=== PATIENT | male | born 1955 ===

== ENCOUNTER 2018-10-31 21:38 | Emergency (ER) | payer SELFPAY ==
[2018-10-31 21:46] VITALS: RESP 18
--- NOTE | 2018-11-01 01:27 | ED PDOC ---
Lower Extremity Pain/Injury Time Seen by Provider: 11/01/18 00:41 Chief Complaint (Nursing): Upper Extremity Problem/Injury Chief Complaint (Provider): Lower Extremity Problem/Injury History Per: Patient History/Exam Limitations: no limitations Onset/Duration Of Symptoms: Days (x1) Additional Complaint(s): 62 y/o male with history of hypertension and diabetes presents to ER for evaluation of ankle pain since yesterday 9am. Patient reports he was at work and fell off a ladder. He states he fell onto his feet and had been having pain since then but he was able to continue working. Patient reports swelling to right ankle and states he took Ibuprofen and applied nguyen wrap. He states he was concerned he might have fracture, which prompted ED visit. PMD: non provided Past Medical History Reviewed: Historical Data, Nursing Documentation, Vital Signs Vital Signs: Last Vital Signs Temp 97.7 F 10/31/18 21:44 Pulse 98 H 10/31/18 21:44 Resp 18 10/31/18 21:44 BP 179/81 H 10/31/18 21:44 Pulse Ox 97 10/31/18 21:44 - Medical History PMH: Diabetes, HTN - Surgical History Surgical History: No Surg Hx - Family History Family History: States: Unknown Family Hx - Social History Current smoker - smoking cessation education provided: No Alcohol: None Drugs: Denies - Allergies Allergies/Adverse Reactions: Allergies Allergy/AdvReac Type Severity Reaction Status Date / Time No Known Allergies Allergy Verified 10/31/18 21:44 Review of Systems ROS Statement: Except As Marked, All Systems Reviewed And Found Negative Musculoskeletal: Positive for: Foot Pain (Right ankle pain) Physical Exam - Reviewed Nursing Documentation Reviewed: Yes Vital Signs Reviewed: Yes - Physical Exam Appears: Positive for: Non-toxic, No Acute Distress Head Exam: Positive for: ATRAUMATIC, NORMOCEPHALIC Skin: Positive for: Normal Color, Warm, Dry Extremity: Positive for: Normal ROM (of left ankle), Swelling (mild to right bimalleolar ankle), Other (Full sensatoin and movement of toes) Neurologic/Psych: Positive for: Alert, Oriented (x3) - ECG O2 Sat by Pulse Oximetry: 97 (RA) Pulse Ox Interpretation: Normal Medical Decision Making Medical Decision Making: Time: 47 Initial impression: 62 years old male with ankle injury Initial plan: --Ankle x-ray --Patient declines any pain medicine 0204 Bilateral ankle x-ray shows no fracture or dislocation. Patient is stable for discharge. Diagnosis is ankle sprain. Scribe Attestation: Documented by Simran Valle, acting as a scribe for Claus Suarez MD. Provider Scribe Attestation: All medical record entries made by the Scribe were at my direction and personally dictated by me. I have reviewed the chart and agree that the record accurately reflects my personal performance of the history, physical exam, medical decision making, and the department course for this patient. I have also personally directed, reviewed, and agree with the discharge instructions and disposition. Disposition - Clinical Impression Clinical Impression: Ankle sprain - Patient ED Disposition Is Patient to be Admitted: No - Disposition Disposition: Routine/Home Disposition Time: 02:04 Condition: STABLE Instructions: Ankle Sprain Forms: [employer] (German) Print Language: DANISH
[2018-11-01 04:29] VITALS: BP 145/88; PULSE 77; TEMP 98.9; O2SAT 98
--- NOTE | 2018-11-01 13:46 | RAD ---
Date of service: 11/01/2018 PROCEDURE: Bilateral Ankle Radiographs. HISTORY: pain COMPARISON: None available. FINDINGS: BONES: Right Ankle: Normal. No fracture. Left Ankle: No fracture. Calcaneal pin noted. JOINTS: Right Ankle: Normal. No osteoarthritis. Ankle mortise maintained. Talar dome intact. Left Ankle: Normal. No osteoarthritis. Ankle mortise maintained. Talar dome intact. SOFT TISSUES: Right Ankle: Normal. Left Ankle: Normal. OTHER FINDINGS: None. IMPRESSION: No acute fracture.
== END 2018-11-01 02:15 | disposition home or self-care (01) ==
LOC: H.ER 21:38
DX: S93.401A Sprain of unspecified ligament of right ankle, initial encounter (principal); W11.XXXA Fall on and from ladder, initial encounter; Y99.0 Civilian activity done for income or pay; E11.9 Type 2 diabetes mellitus without complications; I10 Essential (primary) hypertension